=== PATIENT | male | born 1960 | race Caucasian/White ===

== ENCOUNTER 2016-10-29 12:20 | Emergency (ER) | payer OTHER ==
--- NOTE | 2016-10-29 13:18 | ERPHSYRPT ---
- History of Present Illness Time Seen by Provider: 10/29/16 13:10 Source: patient Exam Limitations: no limitations Patient Subjective Stated Complaint: rt elbow pain for 4 days Triage Nursing Assessment: denies injury. c/o pain to rt elbow radiating up to shoulder and down arm. pain with extension. rt radial pulse present. Physician History: Patient is a 56-year-old male who is right-handed complains of right elbow pain that was severe this morning. It hurts to put pressure on his elbow. His past medical history is significant for fibromyalgia, diabetes, and hypothyroidism. His primary care physician is at the [facility]. Occurred: this morning Method of Injury: unknown Quality: constant, sharpness Severity of Pain-Max: severe Severity of Pain-Current: severe Extremities Pain Location: elbow: right Modifying Factors: Improves With: nothing Associated Symptoms: none Allergies/Adverse Reactions: No Known Drug Allergies Allergy (Unverified 10/29/16 12:28) Home Medications: Levothyroxine Sodium [Synthroid] 175 mcg PO DAILY 11/14/15 [History] Metformin HCl [Glucophage] 500 mg PO BID 11/14/15 [History] Oxycodone HCl 2.5 mg PO DAILY 10/29/16 [History] Hx Tetanus, Diphtheria Vaccination/Date Given: Yes Hx Influenza Vaccination/Date Given: No Hx Pneumococcal Vaccination/Date Given: No Immunizations Up to Date: Yes - Review of Systems Constitutional: No Fever, No Chills Eyes: No Symptoms Ears, Nose, & Throat: No Symptoms Respiratory: No Cough, No Dyspnea Cardiac: No Chest Pain, No Edema, No Syncope Abdominal/Gastrointestinal: No Abdominal Pain, No Nausea, No Vomiting, No Diarrhea Genitourinary Symptoms: No Dysuria Musculoskeletal: Joint Swelling Skin: No Rash Neurological: No Dizziness, No Focal Weakness, No Sensory Changes Psychological: No Symptoms Endocrine: No Symptoms Hematologic/Lymphatic: No Symptoms Immunological/Allergic: No Symptoms All Other Systems: Reviewed and Negative - Past Medical History Pertinent Past Medical History: Yes Cardiac History: High Cholesterol, Hypertension Endocrine Medical History: Diabetes Type II, Hypothyroidism GI Medical History: Hepatitis Psycho-Social History: Depression - Past Surgical History Past Surgical History: Yes Musculoskeletal: Orthopedic Surgery Other Surgical History: back surgery - Social History Smoking Status: Never smoker Exposure to second hand smoke: No Drug Use: marijuana Patient Lives Alone: Yes - Nursing Vital Signs Nursing Vital Signs: Initial Vital Signs Temperature 97.8 F Temperature Source Oral Pulse Rate 80 Respiratory Rate 18 Blood Pressure [Right Arm] 142/60 Pain Intensity 7 - Physical Exam General Appearance: mild distress Eyes, Ears, Nose, Throat Exam: moist mucous membranes Neck Exam: non-tender, supple Cardiovascular/Respiratory Exam: chest non-tender, normal breath sounds, regular rate/rhythm, no respiratory distress Abdominal Exam: non-tender, No guarding Back Exam: normal inspection, No vertebral tenderness Shoulder Exam: normal inspection Elbow/Forearm Exam: limited ROM, pain, soft tissue tenderness, swelling ( Evaluation of the right elbow reveals tenderness over the posterior olecranon and swelling over that region as well. This is consistent with bursitis.) Wrist Exam: normal inspection Hand Exam: normal inspection Neuro/Tendon Exam: normal sensation, normal motor functions Mental Status Exam: alert, oriented x 3, cooperative Skin Exam: normal color, warm, dry SpO2 Interpretation: normal SpO2: 98 Oxygen Delivery: Room Air - Progress Counseled pt/family regarding: diagnosis, need for follow-up - Departure Time of Disposition: 13:21 Departure Disposition: Home Clinical Impression: Olecranon bursitis of right elbow Condition: Stable Critical Care Time: No Additional Instructions: You have olecranon bursitis of the right elbow. You were given a Toradol 60 mg IM injection in the ER. Apply ice to the area 3-4 times a day for 10-15 minutes each. Take naproxen 500 mg twice a day as needed. Take Augmentin twice a day for 10 days. Follow-up on Monday if the condition has not improved. Prescriptions: Amoxicillin/Potassium Clav [Augmentin 875-125 Tablet] 875 mg PO BID #20 tablet Naproxen 500 mg PO BID PRN #30 tablet.
[2016-10-29] MEDS ORDERED: TORAdol 30 mg Injection IM ONE (13:21)
[2016-10-29] MEDS ORDERED: TORAdol 30 mg Injection ONE (13:24)
[2016-10-29 13:50] VITALS: BP 127/60; PULSE 74; O2SAT 95
== END 2016-10-29 13:49 | disposition home or self-care (01) ==
LOC: ED 12:20
DX: M70.21 Olecranon bursitis, right elbow (principal)
CPT/HCPCS: 96372; 99283; J1885

== ENCOUNTER 2024-08-28 13:02 | Emergency (ER) | payer OTHER ==
[2024-08-28 13:05] VITALS: TEMP 97.1
--- NOTE | 2024-08-28 13:21 | ERPHSYRPT ---
- History of Present Illness Historian: patient Exam Limitations: no limitations Patient Subjective Stated Complaint: pt here for chest pain, off and on 3 months, was seen yesterday mi yeaterday. will be referred to loss prevention coordinator, Triage Nursing Assessment: pt alert, walked in, resp easy, skin w/d/p. chest clear, no cough. no edema noted Physician History: Patient's had chest pain for about a month. He says its intermittent. Exertion makes it worse he gets short of breath with exertion. He had an episode today lasted about an hour. It resolved on its own. He was at the [facility] yesterday and he was telling them about it. They told him to come to the ER next time he has chest pain so that is what he did. He is currently pain-free. He did not take any aspirin today. He does not have fever chills cough or dyspnea.He does get dyspnea on exertion. Aspirin Treatment Today: no aspirin today Allergies/Adverse Reactions: [id number] Reductase Inhibitor Allergy (Verified 08/28/24 13:03) Home Medications: Levothyroxine Sodium [Synthroid] 175 mcg PO DAILY 11/14/15 [History] Metformin HCl [Glucophage] 500 mg PO BID 11/14/15 [History] Oxycodone HCl 2.5 mg PO DAILY 10/29/16 [History] Hx Tetanus, Diphtheria Vaccination/Date Given: Yes Hx Influenza Vaccination/Date Given: No Hx Pneumococcal Vaccination/Date Given: No Immunizations Up to Date: Yes Travel Risk - International Travel Have you traveled outside of the country in past 3 weeks: No - Emerging Infectious Disease Are you exhibiting symptoms associated with any current EIDs: No - Review of Systems Constitutional: No Symptoms Eyes: No Symptoms Ears, Nose, & Throat: No Symptoms Respiratory: No Symptoms Cardiac: Chest Pain Abdominal/Gastrointestinal: No Symptoms All Other Systems: Reviewed and Negative - Past Medical History Pertinent Past Medical History: Yes Cardiac History: High Cholesterol, Hypertension Endocrine Medical History: Diabetes Type II, Hypothyroidism GI Medical History: Hepatitis Psycho-Social History: Depression - Past Surgical History Past Surgical History: Yes Musculoskeletal: Orthopedic Surgery Other Surgical History: back surgery - Social History Smoking Status: Former smoker Exposure to second hand smoke: No Drug Use: marijuana - Social Determinants of Health Will the patient participate in the screening: Declined to provide - Nursing Vital Signs Nursing Vital Signs: Initial Vital Signs Pulse Rate 113 H 04/16/25 13:03 Respiratory Rate 16 08/28/24 13:03 Blood Pressure 127/73 08/28/24 13:03 O2 Sat by Pulse Oximetry 97 08/28/24 13:03 Pain Scale Pain Intensity 4 - Physical Exam General Appearance: no apparent distress Eye Exam: PERRL/EOMI Ears, Nose, Throat Exam: normal ENT inspection Respiratory Exam: normal breath sounds Cardiovascular Exam: regular rate/rhythm, normal heart sounds Gastrointestinal/Abdomen Exam: soft Back Exam: normal inspection, normal range of motion Extremity Exam: normal inspection Neurologic Exam: alert, oriented x 3 Skin Exam: normal color, warm SpO2: 97 - Course EKG Interpreted by Me: RATE, Sinus Tach, LAFB, Right Bundle Branch Block, Non- specific ST Changes, Other (Unchanged from the EKG yesterday) Ordered Tests: Active Orders 24 hr Category Date Time Status EKG-ER Only STAT Care 08/28/24 13:22 Active CHEST 1 VIEW (PORTABLE) Stat Exams 08/28/24 13:22 Completed CBC W DIFF Stat Lab 08/28/24 13:15 Completed CMP Stat Lab 08/28/24 13:15 Completed D-DIMER QUANTITATIVE Stat Lab 08/28/24 13:15 Completed TROPONIN Q4H Lab 08/28/24 13:15 Completed TROPONIN Q4H Lab 08/28/24 16:40 Completed TROPONIN Q4H Lab 08/28/24 21:30 Ordered Lab/Rad Data: Laboratory Result Diagrams 08/28/24 13:15 08/28/24 13:15 Laboratory Results 08/28/24 08/28/24 08/28/24 Range/Units 16:40 13:15 13:15 WBC (4.23-9.07) x10^3/uL RBC (4.63-6.08) x10^6/uL Hgb (13.7-17.5) g/dL Hct (40.1-51.0) % MCV (79.0-92.2) fL MCH (25.7-32.2) pg MCHC (32.3-36.5) g/dL RDW (11.6-14.4) % Plt Count (163-337) x10^3/uL MPV (9.4-12.4) fL Gran % (34.0-67.9) % Immature Gran % (Auto) (0.001-0.429) % Nucleat RBC Rel Count (0.00-0.2) % Eos # (Auto) (0.04-0.54) x10^3/uL Immature Gran # (Auto) (0.001-0.031) x10^3u/L Absolute Lymphs (auto) (1.32-3.57) x10^3/uL Absolute Monos (auto) (0.30-0.82) x10^3/uL Absolute Nucleated RBC (0.00-0.012) x10^3u/L Lymphocytes % (21.8-53.1) % Monocytes % (5.3-12.2) % Eosinophils % (0.8-7.0) % Basophils % (0.2-1.2) % Absolute Granulocytes (1.78-5.38) x10^3/uL Basophils # (0.01-0.08) x10^3/uL D-Dimer 0.53 H (0.0-0.50) mg/L Sodium (135-145) mmol/L Potassium (3.5-5.1) mmol/L Chloride (98-107) mmol/L Carbon Dioxide (22-30) mmol/L Anion Gap (5-15) MEQ/L BUN (9-20) mg/dL Creatinine (0.66-1.25) mg/dL Estimated GFR ML/MIN Glucose (74-106) mg/dL Calcium (8.4-10.2) mg/dL Total Bilirubin (0.2-1.3) mg/dL AST (17-59) U/L ALT (0-50) U/L Alkaline Phosphatase (38-126) U/L Troponin I < 0.012 < 0.012 (0.000-0.033) ng/mL Serum Total Protein (6.3-8.2) g/dL Albumin (3.5-5.0) g/dL 08/28/24 08/28/24 Range/Units 13:15 13:15 WBC 11.1 H (4.23-9.07) x10^3/uL RBC 4.38 L (4.63-6.08) x10^6/uL Hgb 13.2 L (13.7-17.5) g/dL Hct 39.1 L (40.1-51.0) % MCV 89.3 (79.0-92.2) fL MCH 30.1 (25.7-32.2) pg MCHC 33.8 (32.3-36.5) g/dL RDW 13.3 (11.6-14.4) % Plt Count 323 (163-337) x10^3/uL MPV 9.3 L (9.4-12.4) fL Gran % 47.9 (34.0-67.9) % Immature Gran % (Auto) 0.3 (0.001-0.429) % Nucleat RBC Rel Count 0.0 (0.00-0.2) % Eos # (Auto) 0.30 (0.04-0.54) x10^3/uL Immature Gran # (Auto) 0.03 (0.001-0.031) x10^3u/L Absolute Lymphs (auto) 4.01 H (1.32-3.57) x10^3/uL Absolute Monos (auto) 1.34 H (0.30-0.82) x10^3/uL Absolute Nucleated RBC 0.00 (0.00-0.012) x10^3u/L Lymphocytes % 36.1 (21.8-53.1) % Monocytes % 12.1 (5.3-12.2) % Eosinophils % 2.7 (0.8-7.0) % Basophils % 0.9 (0.2-1.2) % Absolute Granulocytes 5.32 (1.78-5.38) x10^3/uL Basophils # 0.10 H (0.01-0.08) x10^3/uL D-Dimer (0.0-0.50) mg/L Sodium 140 (135-145) mmol/L Potassium 4.0 (3.5-5.1) mmol/L Chloride 101 (98-107) mmol/L Carbon Dioxide 24 (22-30) mmol/L Anion Gap 19.5 H (5-15) MEQ/L BUN 19 (9-20) mg/dL Creatinine 0.84 (0.66-1.25) mg/dL Estimated GFR 96.2 ML/MIN Glucose 157 H (74-106) mg/dL Calcium 9.4 (8.4-10.2) mg/dL Total Bilirubin 0.50 (0.2-1.3) mg/dL AST 48 (17-59) U/L ALT 44 (0-50) U/L Alkaline Phosphatase 65 (38-126) U/L Troponin I (0.000-0.033) ng/mL Serum Total Protein 7.8 (6.3-8.2) g/dL Albumin 4.9 (3.5-5.0) g/dL - Progress Air Movement: good Progress Note: Patient was stable throughout stay. He did not have any chest pain. His EKG was done. I had a comparison from 1 doneOn 08/20/2024. There were no changes from either EKG. I got an initial troponin on him was less than 0.012 and the repeat 3 to 4 hours later was the same. Patient's chest x-ray was clear. I do not think that he was having a pulmonary embolism. He did not really have symptoms of that. He did have what appears to be stable angina. I am going to refer him to cardiology. In the meantime I am going to give him some nitroglycerin 1 every 5 minutes sublingually x 2 or 3 I told him to come in if the pain does not get better after the 2nd or 3rd tablet.He has no other issues going on right now. I do not think there is anything infectious like pulm pneumonia. I am going to discharge him to home. 08/28/24 18:09 - Departure Departure Disposition: Home Clinical Impression: Angina of effort Condition: Stable Critical Care Time: No Instructions: Angina (DC) Additional Instructions: Call [facility] in [place]. One of them will see you. Take the nitroglycerin as directed. 1 tablet under the mouth every 5 minutes for chest pain do not use more than 3. And come to the ER if it is not better after the 2nd or 3rd nitro Return for any chest pain. And I would advise taking a baby aspirin a day
[2024-08-28 13:36] LABS: Absolute Neutrophil Ct (ANC) 5.32 x10^3/uL (1.78-5.38); BASOPHIL % 0.9 % (0.2-1.2); Eosinophil % 2.7 % (0.8-7.0); Hematocrit 39.1 % (40.1-51.0); Hemoglobin 13.2 g/dL (13.7-17.5); IMMATURE GRAN # 0.03 x10^3u/L (0.001-0.031); IMMATURE GRAN % 0.3 % (0.001-0.429); Lymphocyte (Absolute #) 4.01 x10^3/uL (1.32-3.57); Lymphocytes % 36.1 % (21.8-53.1); Mean Cell Volume 89.3 fL (79.0-92.2); Mean Corpuscular Hemoglobin 30.1 pg (25.7-32.2); Mean Corpuscular Hgb Concent. 33.8 g/dL (32.3-36.5); Mean Platelet Volume 9.3 fL (9.4-12.4); Monocyte (Absolute #) 1.34 x10^3/uL (0.30-0.82); Monocytes % 12.1 % (5.3-12.2); Neutrophil % 47.9 % (34.0-67.9); Platelet Count 323 x10^3/uL (163-337); Red Blood Count 4.38 x10^6/uL (4.63-6.08); Red Cell Distribution Width 13.3 % (11.6-14.4); White Blood Count 11.1 x10^3/uL (4.23-9.07)
[2024-08-28 13:40] LABS: ALBUMIN 4.9 g/dL (3.5-5.0); ANION GAP 19.5 MEQ/L (5-15); BILIRUBIN,TOTAL 0.5 mg/dL (0.2-1.3); Calcium 9.4 mg/dL (8.4-10.2); Creatinine 1 0.84 mg/dL (0.66-1.25); EST GLOMERULAR FILTRATION RATE 96.2 ML/MIN; Total Protein 7.8 g/dL (6.3-8.2)
--- NOTE | 2024-08-28 14:09 | XRAY ---
Indication: Chest pain. Comparison: None Portable apical lordotic chest inflated and clear. Heart not enlarged. Bony thorax intact with osteopenia and mild degenerative changes. No acute findings.
[2024-08-28 18:09] VITALS: O2SAT 97
[2024-08-28 18:14] VITALS: BP 100/77; PULSE 92; RESP 22
== END 2024-08-28 18:26 | disposition home or self-care (01) ==
LOC: ED 13:02
DX: I20.89 Other forms of angina pectoris (principal); I10 Essential (primary) hypertension; E78.5 Hyperlipidemia, unspecified; E11.9 Type 2 diabetes mellitus without complications; Z79.84 Long term (current) use of oral hypoglycemic drugs; Z79.899 Other long term (current) drug therapy
CPT/HCPCS: 36415; 71045; 80053; 84484; 85025; 85379; 93005; 99283; 99284; 99285

== ENCOUNTER 2025-04-24 08:30 | Day surgery (SDC) | payer OTHER ==
[2025-04-24] MEDS ORDERED: LIDOCAINE HCL 2% 100 MG/5 ML IJ ONE (08:31)
[2025-04-24] MEDS ORDERED: propofoL IV ONE ×2 (10:27→10:35)
--- NOTE | 2025-04-24 12:11 | XRAY ---
Indication: Right C3-C5 MBB. Intraoperative fluoroscopy provided for 17 seconds. 3 digital spot image submitted for interpretation demonstrates posterior needle tips projecting over expected right C3-C5 nerve roots. Correlate with intraoperative findings/report.
--- NOTE | 2025-04-24 12:13 | XRAY ---
17 seconds of fluoroscopy was used in surgery for a right C3-C5 MBB.
[2025-04-24] MEDS ORDERED: Lactated Ringers 1,000 ML IV ONE (12:44)
== END 2025-04-24 11:02 | disposition home or self-care (01) ==
LOC: SDC-PAIN 08:30
PROVIDERS: ATTEND Psychiatry & Neurology Pain Medicine
DX: M47.812 Spondylosis without myelopathy or radiculopathy, cervical region (principal); E11.9 Type 2 diabetes mellitus without complications